=== PATIENT | female | born 1975 | race Caucasian/White ===

== ENCOUNTER 2021-01-17 08:53 | Outpatient (CLI) | payer OTHER ==
--- NOTE | 2021-01-17 10:25 | ULT ---
Ultrasound of theabdomen: 01/17/2021 COMPARISON:None available HISTORY:Celiac disease TECHNIQUE: Multiplanar grayscale sonographic imaging of theabdomen FINDINGS:The imaged pancreas is unremarkable. The tail is obscured by bowel gas. The IVC and aorta appear within normal limits. No focal liver lesion or intrahepatic biliary dilatation is seen. The common bile duct measures 3 mm, within normal limits. No gallbladder wall thickening or pericholecystic fluid. There is a 1.4 cm shadowing lesion within th e gallbladder consistent with a gallstone. The right kidney measures 9.1 cm in craniocaudal dimension and demonstrates no hydronephrosis, stone, or mass lesion. There is a round lesion measuring 4.7 x 4.0 cm in the midline abdomen anteriorly, inferior to the gal lbladder fundus, etiology uncertain. This lesion is hypoechoic, likely cystic in nature, and demonstrates no internal blood flow. The production internship reports a negative Kohli's sign. The spleen measures 11.4 cm in craniocaudal dimension, within normal limits. Left kidney measures 9.6 cm in craniocaudal dimension and demonstrates no stone, hydronephrosis, or m ass. IMPRESSION: Cholelithiasis without sonographic evidence of cholecystitis or biliary dilatation. 4.7 cm round hypoechoic lesion in the midline upper abdomen, etiology uncertain. Recommend further as sessment via CT of the abdomen with and without contrast CODE T
== END 2021-01-17 08:54 | disposition home or self-care (01) ==
LOC: BICULT 08:53
PROVIDERS: ATTEND Internal Medicine
DX: K90.0 Celiac disease (principal); R10.11 Right upper quadrant pain; F10.11 Alcohol abuse, in remission; R12 Heartburn; K80.20 Calculus of gallbladder without cholecystitis without obstruction; Z80.0 Family history of malignant neoplasm of digestive organs
CPT/HCPCS: 93975

== ENCOUNTER 2021-01-17 08:58 | Outpatient (CLI) | payer OTHER ==
--- NOTE | 2021-01-17 10:22 | BD ---
DEXA BONE DENSITY STUDY: Date: 01/17/2021 HISTORY: Celiac disease. FINDINGS: Lumbar Spine: BMD (g/cm2) L1 0.987 T-Score: +0.0 L2 1.077 T-Score: +0.4 L3 1.143 T-Score: +0.5 L4 1.010 T-Score: -0.5 Total 1.054 T-Score: +0.1 Left Femoral Neck: 0.723 T-Score: -1.1 Total Femur: 0.916 T-Score: -0.2 IMPRESSION: Normal bone mineral density of the lumbar spine and osteopenia of the left femoral neck. POS: OFF
== END 2021-01-17 08:59 | disposition home or self-care (01) ==
LOC: BICMAMMO 08:58
PROVIDERS: ATTEND Internal Medicine
DX: Z13.820 Encounter for screening for osteoporosis (principal); K90.0 Celiac disease; R10.11 Right upper quadrant pain; R12 Heartburn; F10.11 Alcohol abuse, in remission; M85.852 Other specified disorders of bone density and structure, left thigh; Z80.0 Family history of malignant neoplasm of digestive organs
CPT/HCPCS: 77080

== ENCOUNTER 2021-01-27 07:33 | Outpatient (CLI) | payer OTHER ==
[2021-01-27] MEDS ORDERED: Iopamidol-370 76% 500 ML 1 ML ONE (11:48)
== END 2021-01-27 07:34 | disposition home or self-care (01) ==
LOC: BICCT 07:33
PROVIDERS: ATTEND Internal Medicine
DX: R93.5 Abnormal findings on diagnostic imaging of other abdominal regions, including retroperitoneum (principal)
CPT/HCPCS: 74170; Q9967

== ENCOUNTER 2021-05-19 12:31 | Outpatient (CLI) | payer OTHER ==
[2021-05-19 14:11] LABS: #Basophils 0.1 10x3/uL (0.0-0.2); #Eosinphils 0.2 10x3/uL (0.0-0.5); #Monocytes 0.4 10x3/uL (0.0-1.1); #Neutrophils 2.7 10x3/uL (1.5-8.4); %Basophils 1.3 % (0.0-2.0); %Eosinophils 3.4 % (0.0-6.0); %Lymphocytes 28.7 % (18.0-47.0); %Monocytes 9.3 % (0.0-10.0); %Neutrophils 57.1 % (40.0-75.0); Hemoglobin 12.6 g/dL (12.0-15.5); Mean Corpuscular HGB CONC 33.7 g/dL (32.0-36.0); Mean Corpuscular Hemoglobin 31.9 pg (27.0-33.0); Mean Corpuscular Volume 94.7 fl (81.6-98.3); Mean Platelet Volume 10.3 fl (7.4-10.4); Platelet Count 306 10x3/uL (150-450); RBC Distribution Width 12.7 % (11.5-14.5); Red Blood Cell (RBC) Count 3.95 10x6/uL (3.90-5.03); White Blood Cell (WBC) Count 4.7 10x3/uL (3.5-10.5)
[2021-05-19 14:41] LABS: Anion Gap 13 mmol/L (10-20); BUN (Urea Nitrogen) 8 mg/dL (7.0-18.7); Calc. Creatinine Clearance 0 mL/min (70-130); Calcium 9.4 mg/dL (7.8-10.44); Carbon Dioxide 26 mmol/L (22-29); Chloride 104 mmol/L (98-107); Glucose 71 mg/dL (70-105); Sodium 139 mmol/L (136-145)
[2021-05-20 19:00] LABS: SARS-CoV-2 PCR by NAA Not Detected (NotDetected)
== END 2021-05-19 12:32 | disposition home or self-care (01) ==
LOC: LABBT 12:31
PROVIDERS: ATTEND Surgery
DX: Z01.812 Encounter for preprocedural laboratory examination (principal); K80.20 Calculus of gallbladder without cholecystitis without obstruction; Z20.822 Contact with and (suspected) exposure to COVID-19
CPT/HCPCS: 80048; 85025; U0003; U0005

== ENCOUNTER 2021-05-24 10:16 | Day surgery (SDC) | payer BC ==
[2021-05-23 11:30] VITALS: BMI 21.7
[2021-05-24] MEDS ORDERED: cefOXitin Sodium/Dextrose 2 GM/50 ML BAG ONE (11:04)
[2021-05-24] MEDS ORDERED: Midazolam HCl 2 mg/2 ml Vial ONE (11:04)
[2021-05-24] MEDS ORDERED: Fentanyl 100 MCG/2 ML VIAL ONE ×2 (11:30→14:24)
[2021-05-24] MEDS ORDERED: Bupivacaine 0.25% HCL 30 ML VIAL ONE (11:41)
[2021-05-24] MEDS ORDERED: Lidocaine 1% w/Epinephrine 1:100K 20 ML VIAL ONE (11:41)
[2021-05-24] MEDS ORDERED: PHENYLEPHRINE-NS 100 MCG/ML 10 ML SYRINGE ONE (12:12)
[2021-05-24] MEDS ORDERED: Glycopyrrolate 0.2 MG/ML 5 ML SYRINGE ONE (12:12)
[2021-05-24] MEDS ORDERED: Dexamethasone 20 MG/5 ML VIAL ONE (12:12)
[2021-05-24] MEDS ORDERED: Ondansetron PF 4 MG/2 ML Vial ONE ×2 (12:12→14:28)
[2021-05-24] MEDS ORDERED: Rocuronium Bromide 10 MG/ML (10ML VIAL) ONE (12:12)
[2021-05-24] MEDS ORDERED: Lidocaine 1% PF 5 ML VIAL ONE (12:12)
[2021-05-24] MEDS ORDERED: PROPOFOL 200 MG/20 ML VIAL ONE (12:12)
[2021-05-24] MEDS ORDERED: Ketorolac Tromethamine 30 MG/ML VIAL ONE (14:16)
[2021-05-24] MEDS ORDERED: HYDROcodone/Acetaminophen 5/325 mg Tablet ONE (15:18)
== END 2021-05-24 16:53 | disposition home or self-care (01) ==
LOC: SDC 10:16
PROVIDERS: ATTEND Surgery
PROC: 0DBV4ZZ Excision of Mesentery, Percutaneous Endoscopic Approach (ICD-10-PCS; principal; 2021-05-24)
PROC: 0FT44ZZ Resection of Gallbladder, Percutaneous Endoscopic Approach (ICD-10-PCS; principal; 2021-05-24)
PROC: 8E0W8CZ Robotic Assisted Procedure of Trunk Region, Via Natural or Artificial Opening Endoscopic (ICD-10-PCS; principal; 2021-05-24)
DX: K80.10 Calculus of gallbladder with chronic cholecystitis without obstruction (principal); K66.8 Other specified disorders of peritoneum; Z79.899 Other long term (current) drug therapy; Z88.8 Allergy status to other drugs, medicaments and biological substances
CPT/HCPCS: 88304; J0694; J1100; J1885; J2250; J2405; J2704; J3010; S0020